=== PATIENT | female | born 1950 | race Caucasian/White ===

== ENCOUNTER → 2017-05-29 | Outpatient (CLI) | payer OTHER ==
[~2017-05-29] MED LIST: ASPI81TA28 PO; ATEN50TA8 PO; ATOR10TA88 PO; CHOLTAB3 PO; COEN1CAP7 PO; MULT-506 PO; OMEG10007 PO; OMEP10CA2 PO; VITA400C15 PO
--- NOTE | 2017-05-30 08:12 | MAMMOGRAPHY REPORT ---
BILATERAL DIGITAL SCREENING MAMMOGRAM TOMOSYNTHESIS WITH CAD: 05/29/2017 CLINICAL HISTORY: Asymptomatic. Personal history of breast cancer. TECHNIQUE: Breast tomosynthesis in addition to standard 2D mammography was performed. Current study was also evaluated with a Computer Aided Detection (CAD) system. COMPARISON: Comparison is made to exams dated: 05/24/2016 mammogram, 11/22/2015 mammogram, 03/31/2015 ma mmogram, 09/14/2014 mammogram, 03/11/2014 mammogram, and 03/25/2013 ultrasound biopsy - [facility]. BREAST COMPOSITION: The tissue of both breasts is heterogeneously dense, which may obscure small mas ses. FINDINGS: There is expected architectural distortion, density and skin irregularity in the upper out er posterior right breast, at the site of prior lumpectomy. There is mild diffuse skin thickening of the right breast, decreasing comparing to prior recent mammograms. There is a 5 mm nodular asymmetr y along the lateral aspect of the lumpectomy bed (best seen on cc tomosynthesis slice 36/70), for whi ch additional targeted ultrasound and possible additional mammographic views are recommended. There are diffuse benign coarse calcifications in the breasts. No other new suspicious mass, archite ctural distortion or cluster of microcalcifications is seen. IMPRESSION: ACR BI-RADS CATEGORY 0: INCOMPLETE EVALUATION: NEED ADDITIONAL IMAGING EVALUATION The 5 mm nodular asymmetry in the lateral, posterior right breast just lateral to the lumpectomy bed needs additional evaluation. The patient will be called to schedule an appointment. Approximately 10% of breast cancers are not detected with mammography. A negative mammographic report should not delay biopsy if a clinically suggestive mass is present. Rupali Nguyen M.D. ay/:05/29/2017 17:56:14 Dining Car Waiter/Waitress: Vivien Gutierrez, [facility] letter sent: Addl Imaging 0 BI-RADS Code: ACR BI-RADS Category 0: Incomplete Evaluation: Need Additional Imaging Evaluation
== END | disposition home or self-care (01) ==
LOC: C.MAMM 08:04
PROVIDERS: ATTEND Surgery
DX: Z12.31 Encounter for screening mammogram for malignant neoplasm of breast (principal); Z85.3 Personal history of malignant neoplasm of breast; N64.89 Other specified disorders of breast

== ENCOUNTER → 2017-06-05 | Outpatient (CLI) | payer OTHER ==
--- NOTE | 2017-06-05 14:33 | MAMMOGRAPHY REPORT ---
ULTRASOUND OF RIGHT BREAST: 06/05/2017 CLINICAL HISTORY: 67 year-old woman with a personal history of right breast cancer status post breast conserving treatment in 2012 call back from recent screening mammogram for a 5 mm nodular asymmetry lateral to the surgical site on the CC view. COMPARISON: Comparison is made to exams dated: 05/29/2017 mammogram, 05/24/2016 mammogram, 11/22/2015 m ammogram, 03/31/2015 mammogram, 09/14/2014 mammogram, and 03/11/2014 mammogram - [facility] nter. FINDINGS: Targeted ultrasound was performed along and just lateral to the skin surgical scar at the s ite of prior lumpectomy, in the upper outer quadrant of the right breast, approximate 10:00 axis. Th ere is heterogeneous hypoechoic thickening of the skin versus mass along the lateral aspect of the sc ar. There is another discrete nodular area with possible internal echogenic reflectors which may rep resent the calcification seen mammographically within a 5 mm nodular asymmetry. This nodular compone nt measures 3.5 x 3.2 x 5.4 mm. A thin oval masslike heterogeneous area deep to the dermis and in po ssibly involving the dermis within 8 mm of the nodular area measures 10.9 x 5.5 mm. These areas may represent fat necrosis although recurrent disease cannot be excluded and definitive characterization with an ultrasound-guided core needle biopsy is recommended. IMPRESSION: ACR BI-RADS CATEGORY 4: SUSPICIOUS - FOLLOW-UP RECOMMENDED There are 2 prominent heterogeneous solid nodular areas near the skin surgical scar and just lateral to it, in the approximate 10:00 right breast, at the site of prior lumpectomy. The smaller nodular a nisa is thought to correspond with the mammographic finding. Differential considerations include fat necrosis and recurrent disease. Definitive characterization with an ultrasound guided core needle bi opsy is recommended. These results and recommendations were discussed with the patient at the time of the exam. She tenta tively scheduled the biopsy prior to leaving our department. Rupali Nguyen M.D. ay/:06/05/2017 14:06:25 Freight Service Inspector: Dr. Rupali Nguyen, [facility] letter sent: Abnormal 4/5 BI-RADS Code: ACR BI-RADS Category 4: Suspicious
== END | disposition home or self-care (01) ==
LOC: C.MAMM 10:53
PROVIDERS: ATTEND Surgery
DX: Z12.31 Encounter for screening mammogram for malignant neoplasm of breast (principal); N64.89 Other specified disorders of breast

== ENCOUNTER → 2017-06-11 | Outpatient (CLI) | payer OTHER ==
--- NOTE | 2017-06-11 09:52 | Discharge Instructions ---
Discharge Instructions Procedure Procedure Date: Jun 11, 2017. Reason for visit: Right Mass. Discharge Discharge Date: Jun 11, 2017. Discharge Diagnosis: post right breast ultrasound guided core biopsy x 2 Medications Restart Stopped Medication(s): May restart Aspirin tonight or tomorrow Instructions Activity Recommendations: Additional Limitations (see below) Return to School/Work: no limitations Recommended Home Diet: No Limitations Provider Instructions: ACTIVITY RECOMMENDATIONS: * No lifting, pushing, pulling or exercising the affected side for three days. RETURN TO SCHOOL/WORK: * You may return to work/school after the procedure, but do not perform any strenuous activities for 24 to 48 hours. MEDICATIONS: * Tylenol (two 325 mg) every four to six hours if needed for mild pain (if not allergic to Tylenol). DIET: * Resume previous diet. SPECIAL CARE INSTRUCTIONS: * Keep biopsy site dry for 24 hours. May shower after 24 hours, but do not soak (bathe) incision. * May remove Tegaderm (plastic patch) tomorrow AFTER showering. * Leave the steri-strips on for one week. Allow the steri-strips to fall off by themselves. If not off after one week, you may remove them. You may place a Bandaid crosswise over the strips, if desired. * Apply ice 10 minutes on and 10 minutes off as needed. * Wear a bra at bedtime to sleep more comfortably for 2-3 days. * Your referring physician should have the results after approximately 5 to 7 business days. * Call for unusual bleeding, fever, drainage, etc or if you have any questions call [phone] during normal business hours or after hours call Dr Nguyen, . FOLLOW UP VISIT: Follow-up with Referring Physician as scheduled. Allergies Coded Allergies: No Known Allergies (Verified Allergy, Unknown, 03/13/05) Monica Brown Recommendations: Call your doctor if: * Temperature above 101 degrees * Pain not relieved by pain medicine ordered * There is increased drainage or redness from any incision * You have any unanswered questions or concerns. Your Doctors Instructions noted above were prepared by provider Rupali Nguyen. Patient Signature Section: Patient Instructions Signature Page Dusty Rajput Patient (or Guardian) Signature/Date: I have read and understand the instructions given to me by my caregivers. Caregiver/RN/Doctor Signature/Date: The above-named patient and/or guardian has received patient instructions on this date. + Original Patient Signature Page (only) stays with chart. Please make copy for patient.
--- NOTE | 2017-06-11 13:34 | MAMMOGRAPHY REPORT ---
ULTRASOUND GUIDED BIOPSY: 06/11/2017 CLINICAL HISTORY: Indeterminate hypoechoic masslike areas extending into the dermis and adjacent to s car in the 10:00 right breast, near the area of prior lumpectomy. Patient presents for ultrasound-gu ided core biopsy 2. Please refer to the report from right breast ultrasound guided core biopsy performed at the same time for full detail. IMPRESSION: ULTRASOUND GUIDED BIOPSY Please refer to the report from right breast ultrasound guided core biopsy performed at the same time for full detail. Rupali Nguyen M.D. ay/:06/11/2017 09:53:08 Attending Technologist: Muriel Johnson RT(R)(M), [facility] Tank Hoop Bender: Dr. Rupali Nguyen, [facility]
--- NOTE | 2017-06-11 13:34 | MAMMOGRAPHY REPORT ---
MULTIPLE ULTRASOUND GUIDED BIOPSIES RIGHT BREAST: 06/11/2017 CLINICAL HISTORY: Ill-defined heterogeneous hypoechoic lesions near the lumpectomy scar, and close to the skin in the 10:00 right breast. Patient presents for ultrasound-guided core biopsy 2. COMPARISON: Comparison is made to exams dated: 06/05/2017 ultrasound, 05/29/2017 mammogram, 05/24/2016 mammogram, 11/22/2015 mammogram, 03/31/2015 mammogram, and 09/14/2014 mammogram - [facility]. PATIENT CONSENT: The procedure, risks and benefits were discussed with the patient and informed conse nt was obtained both verbally and in writing. Specific risks to this procedure include: bleeding, in fection, puncture of adjacent structure, nontarget biopsy, sampling error, pain, metal allergy and me dication reaction. PROCEDURE DESCRIPTION: A time out was performed and the right breast was agreed as the site of biopsy . The skin was prepped and draped in the usual sterile fashion. First, the rounded hypoechoic area w ith possible associated calcification in the 10:00 right breast, just lateral to the skin surgical sc ar was identified and targeted for biopsy. Subcutaneous and intraparenchymal 1% buffered lidocaine, without epinephrine, was administered as local anesthesia. A skin incision was made. Through the inc ision, 6 samples were taken with a 14 gauge Achieve biopsy device. A ribbon shaped metallic marker wa s placed at the biopsy site. Hemostasis was achieved after manual compression. The patient tolerated the procedure well and there was no immediate complication. Then the heterogeneous vascular hypoechoic area closer to the skin surface in the 10:00 right breast was identified and targeted for biopsy. Additional 1% buffered lidocaine without epinephrine was adm inistered as local anesthesia. Using the same incision from the first biopsy site, 3 samples were ob tained with a 14-gauge achieve biopsy device. A wing-shaped metallic biopsy marker was placed at thi s site. All of the samples were sent expedited to the pathology department in appropriately labeled containers. Postprocedure right CC and ML 2-D and tomosynthesis images were obtained. 2 new biopsy marker clips are seen in the upper outer posterior right breast, at the site of recent biopsy. The ribbon-shaped clip aligns with the nodular mammographic asymmetry in question. The wing-shaped clip is seen corres ponding to an ill-defined asymmetry just below the dermis. No significant post biopsy hematoma is se en. IMPRESSION: ULTRASOUND GUIDED BIOPSY Status post ultrasound-guided core needle biopsy of 2 ill-defined hypoechoic heterogeneous solid mass es in the 10:00 right breast lateral to the surgical scar and near the dermis, with biopsy markers pl aced at each site. The patient will receive notification of the biopsy results from her referring physician. Rupali Nguyen M.D. ay/:06/11/2017 11:34:03 Attending Technologist: Muriel CAMERON(Suad)(M), [facility] Community Representative: Dr. Rupali Nguyen, [facility]
--- NOTE | 2017-06-11 13:35 | MAMMOGRAPHY REPORT ---
UNILATERAL RIGHT DIGITAL DIAGNOSTIC MAMMOGRAM TOMOSYNTHESIS: 06/11/2017 CLINICAL HISTORY: Status post ultrasound guided core biopsy 2 near the surgical scar in the 10:00 ri t breast. Please refer to the report from right breast ultrasound guided core biopsy performed at the same time for full detail. IMPRESSION: POST PROCEDURE IMAGING FOR MARKER PLACEMENT Please refer to the report from right breast ultrasound guided core biopsy performed at the same time for full detail. Approximately 10% of breast cancers are not detected with mammography. A negative mammographic report should not delay biopsy if a clinically suggestive mass is present. Rupali Nguyen M.D. ay/:06/11/2017 09:53:47 Python Architect: Muriel CAMERON(Suad)(M), [facility] BI-RADS Code: Post Procedure Imaging For Marker Placement
== END | disposition home or self-care (01) ==
LOC: C.MAMM 08:53
PROVIDERS: ATTEND Surgery
DX: N63.10 Unspecified lump in the right breast, unspecified quadrant (principal)

== ENCOUNTER → 2017-06-26 | Outpatient (CLI) | payer OTHER ==
[~2017-06-26] MED LIST changes: +ATOR10TA82 PO; -ATOR10TA88 PO
[2017-06-26 13:01] VITALS: BP 129/84; PULSE 56; TEMP 37.1; O2SAT 97
--- NOTE | 2017-06-26 14:24 | Radiation Oncology Follow-Up ---
Radiation Oncology Follow-Up Date of Visit Jun 26, 2017. 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 She has noted no masses or tenderness and no change in the axilla. She's had no swelling of her arm. She had a mammogram 05/29/2017. There was a 5 mm nodule asymmetry in the lateral posterior right breast just lateral to the lumpectomy bed. She had an ultrasound which showed 2 prominent heterogeneous solid nodular areas near the skin surgical scar and just lateral to it in approximately 10:00 right breast, at the site of the prior lumpectomy. Smaller nodular area is thought to correspond with a mammographic finding. This was reviewed by Dr. Mejia and biopsies were performed. This was carried out on 06/11/2017. This showed fibrous, fat necrosis and chronic inflammation. At 2 sites. Pathology specimen [id number]. She is doing well. She is very minimal tenderness left in the area of the biopsy site. Allergies Coded Allergies: No Known Allergies (Verified Allergy, Unknown, 03/13/05) Home Medications Scheduled Aspirin (Aspirin Ec), 81 MG PO DAILY Atenolol (Tenormin), 50 MG PO DAILY Atorvastatin (Lipitor), 10 MG PO DAILY Coenzyme Q10 (Ubidecarenone) (Coq10), 1 CAP PO DAILY Ergocalciferol (Vitamin D), 400 INTER.UNIT PO DAILY Fish Oil ([place]-3), 1 CAP PO DAILY Multivitamin (Multivitamin), 1 TAB PO DAILY Omeprazole (Prilosec), 10 MG PO PRN Tocopheryl Acet,Dl-Alpha (Vitamin E), 400 INTER.UNIT PO DAILY Review of Systems Gastrointestinal: Symptoms: WNL Oral: Symptoms: No Problems Respiratory: Symptoms: WNL Other Respiratory: Currently with head cold which she got the past couple days Urinary: Symptoms: WNL Skin: Symptoms: No Problems Breast: Right Upper Arm Measurement: 35.0 Right Mid Arm Measurement: 28.3 Right Wrist Measurement: 17.0 Left Upper Arm Measurement: 36.0 Left Mid Arm Measurement: 29.0 Left Wrist Measurement: 17.5 Arm Dominence: Right Physical Exam Vital Signs Date Time Temp Pulse Resp B/P (MAP) Pulse Ox O2 Delivery O2 Flow Rate FiO2 06/26/17 13:01 37.1 56 12 129/84 97 Fatigue: None General Appearance: no apparent distress Eyes: normal inspection, EOMI ENT: normal ENT inspection, hearing grossly normal Neck: no adenopathy, thyroid normal Respiratory/Chest: lungs clear, no respiratory distress, no accessory muscle use Breast: Breast examination reveals healed incision of the right lateral breast. There are fibrous changes with mild retraction. There are no distinct masses. There is slight tenderness. There is no erythema or edema. There is no axillary adenopathy. Using the Som[place] score cosmesis she has a fair outcome. The left breast showed no masses or tenderness and no axillary adenopathy. Cardiovascular: regular rate, rhythm, no gallop, no murmur Extremities: no pedal edema Neurologic/Psychiatric: no motor/sensory deficits, alert, normal mood/affect Skin: warm/dry Laboratory Studies [facility] SURGICAL PATHOLOGY REPORT Name Dusty SCHMITT Case: [id number] SURGICAL PATHOLOGY REPORT Page 3 of [address] [address] Marito Longo M.D. medical charge entry specialist PATHOLOGY REPORT SURGICAL PATHOLOGY REPORT Page 1 of 1 Name Dusty SCHMITT Age/Sex 67/F Location: C.MAMM MR# [id number] : 1950 Rm/Bed Physician: Adriel Mejia M.D. Case: [id number] Received 06/11/17 Specimen Date 06/11/17 CLINICAL HISTORY Hypoechoic masses near lumpectomy bed 10 oclock right breast. Rule out recurrent disease. GROSS DESCRIPTION A. US-GUIDED CORE BIOPSY SMALLER AREA WITH CALCIFICATIONS The specimen is received in a container labeled as right breast 10 oclock with patient name Ember Schmitt. The specimen consists of multiple cylindrical fragments of pale pink, yellow and dark red soft, rubbery tissue. The fragments range from 0.3 to 2.8 cm long and average 0.2 cm in diameter. The specimen is submitted entirely in a single cassette labeled as A for levels. B. LARGER AREA NEAR SKIN The specimen is received in a container labeled as right 10 oclock with patient name Ember Schmitt. The specimen consists of three pale pink, bright yellow and red cylindrical fragments of soft, rubbery tissue. The fragments range from 1.8 to 2.5 cm long and average 0.2 cm in diameter. The specimen is submitted entirely in a single cassette as B for levels. Specimens A and B are each fixed in formalin for 10 hours. /[facility] MICROSCOPIC DESCRIPTION Multiple levels and sections are examined. Both biopsies specimens appear somewhat similar and show areas of variably necrotic fibrotic and adipose tissue. Areas consistent with fat necrosis and associated histiocytes are present. In some of these areas are scattered somewhat infiltrating appearing cells. Immunohistochemistry is performed on both parts A and B. The cells of interest are negative with pankeratin and positive with CD163. The overall findings are consistent with fat necrosis, fibrosis and varying degrees of chronic inflammation. No carcinoma is identified. No calcifications are identified either specimen. Immunohistochemical stains at [facility] ([facility]) are performed for diagnostic reasons (i.e. detection of malignancy, tumor subtyping, infection identification), therapy selection (i.e. estrogen receptor) and genetic disorder evaluation (i.e. Diop syndrome). The quantity and specific types of immunohistochemistry stains are purposely chosen in the context of the clinical history, morphologic findings and best clinical practice. Immunohistochemical stains are performed at [facility] on a [employer] automated system with performance determined by the [facility]. Some stains may be performed by other laboratories ([facility] or [facility]) with development and performance characteristics determined by that laboratory. When necessary, on- line positive controls are reviewed at that particular laboratory. These tests have not been cleared or approved for specific use by the U.S. Food and Drug Administration. The FDA has determined that such approval is not necessary. The test is used for clinical purposes. It should not be regarded as investigational or for research. This laboratory is certified under CLIA 1988 as qualified to perform high complexity testing. Immunohistochemistry performed on decalcified specimens is done with antigen retrieval which has been internally validated in the [facility] laboratory. Immunocytochemistry may be performed on alcohol fixed smears, cytospins or Thin Prep slides. Immunocytochemistry on all of these types of slides has been internally validated in the [facility] laboratory. FINAL DIAGNOSIS A. BREAST, RIGHT, 10 OCLOCK, SMALLER AREA WITH CALCIFICATIONS, ULTRASOUND GUIDED CORE BIOPSY: 1. NEGATIVE FOR CARCINOMA. 2. FIBROSIS, FAT NECROSIS AND CHRONIC INFLAMMATION. 3. NO MICROCALCIFICATIONS IDENTIFIED. B. BREAST, RIGHT, 10 OCLOCK, LARGER AREA NEAR SKIN, CORE BIOPSY: 1. NEGATIVE FOR CARCINOMA. 2. FIBROSIS, FAT NECROSIS AND CHRONIC INFLAMMATION. 3. NO MICROCALCIFICATIONS IDENTIFIED. PM/bf COPIES TO Adriel Mejia M.D. [address] [place] [address] Drive [address] [place] [address] [facility] Center, ([facility]) , Stanislav Lang M.D. [address] [place] [address] Rupali Nguyen MD [address] [place] [id number] Signed: <signature on file> 06/12/17 Marito Longo M.D. Additional Studies Patient: Dusty SCHMITT [facility] Rec: [id number] Address1: [address] [place] [address] Address2: [facility] [address] Acct ID: [id number] Date: 1950 Sex: F Ref Phy: Mary Aburto M.D. Att Phy: Adriel Mejia M.D. Hetal Phy: Stanislav Lang M.D. Inter Phy: Rupali Nguyne MD [facility] Zip: [place] [address] SC: C.MAMM Report #: [id number] Finance Attorney: CECE Diagnosis: ASYMPTOMATIC, HX OF BREAST CA Service Date: 05/29/17 MNE: MAMM1 Ordering Dr: Adriel Mejia M.D. CC: Adriel Mejia M.D. CONF: DICTATED BY: Rupali Nguyen MD MAMMOGRAPHY REPORT BILATERAL DIGITAL SCREENING MAMMOGRAM TOMOSYNTHESIS WITH CAD: 05/29/2017 CLINICAL HISTORY: Asymptomatic. Personal history of breast cancer. TECHNIQUE: Breast tomosynthesis in addition to standard 2D mammography was performed. Current study was also evaluated with a Computer Aided Detection (CAD ) system. COMPARISON: Comparison is made to exams dated: 05/24/2016 mammogram, 11/22/2015 mammogram, 03/31/2015 mammogram, 09/14/2014 mammogram, 03/11/2014 mammogram, and ultrasound biopsy - [facility]. BREAST COMPOSITION: The tissue of both breasts is heterogeneously dense, which may obscure small masses. FINDINGS: There is expected architectural distortion, density and skin irregularity in the upper outer posterior right breast, at the site of prior lumpectomy. There is mild diffuse skin thickening of the right breast, decreasing comparing to prior recent mammograms. There is a 5 mm nodular asymmetry along the lateral aspect of the lumpectomy bed (best seen on cc tomosynthesis slice 36/70), for which additional targeted ultrasound and possible additional mammographic views are recommended. There are diffuse benign coarse calcifications in the breasts. No other new suspicious mass, architectural distortion or cluster of microcalcifications is seen. IMPRESSION: ACR BI-RADS CATEGORY 0: INCOMPLETE EVALUATION: NEED ADDITIONAL IMAGING EVALUATION The 5 mm nodular asymmetry in the lateral, posterior right breast just lateral to the lumpectomy bed needs additional evaluation. The patient will be called to schedule an appointment. Approximately 10% of breast cancers are not detected with mammography. A negative mammographic report should not delay biopsy if a clinically suggestive mass is present. Rupali Nguyen M.D. ay/:05/29/2017 17:56:14 Him Tech: Vivien Gutierrez, [facility] letter sent: Addl Imaging 0 BI-RADS Code: ACR BI-RADS Category 0: Incomplete Evaluation: Need Additional Imaging Evaluation Dictated by: Rupali Nguyen MD Signed by: Rupali Nguyen MD Patient: Dusty SCHMITT [facility] Rec: [id number] Address1: [address] [place] [address] Address2: [place] [address] Acct ID: [id number] Date: 1950 Sex: F Ref Phy: Adriel Mejia M.D. Att Phy: Adriel Mejia M.D. Hetal Phy: Stanislav Lang M.D. Inter Phy: Rupali Nguyen MD [facility] Zip: [place] [address] SC: ItzelMAMM Report #: [id number] Finance Attorney: HOLLY Diagnosis: RIGHT NODULAR ASYMMETRY Service Date: 06/05/17 MNE: MAMM1 Ordering Dr: Adriel Mejia M.D. CC: Adriel Mejia M.D. CONF: DICTATED BY: Rupali Nguyen MD MAMMOGRAPHY REPORT ULTRASOUND OF RIGHT BREAST: 06/05/2017 CLINICAL HISTORY: 67 year-old woman with a personal history of right breast cancer status post breast conserving treatment in 2012 call back from recent screening mammogram for a 5 mm nodular asymmetry lateral to the surgical site on the CC view. COMPARISON: Comparison is made to exams dated: 05/29/2017 mammogram, 05/24/2016 mammogram, 11/22/2015 mammogram, 03/31/2015 mammogram, 09/14/2014 mammogram, and mammogram - [facility]. FINDINGS: Targeted ultrasound was performed along and just lateral to the skin surgical scar at the site of prior lumpectomy, in the upper outer quadrant of the right breast, approximate 10:00 axis. There is heterogeneous hypoechoic thickening of the skin versus mass along the lateral aspect of the scar. There is another discrete nodular area with possible internal echogenic reflectors which may represent the calcification seen mammographically within a 5 mm nodular asymmetry. This nodular component measures 3.5 x 3.2 x 5.4 mm. A thin oval masslike heterogeneous area deep to the dermis and in possibly involving the dermis within 8 mm of the nodular area measures 10.9 x 5.5 mm. These areas may represent fat necrosis although recurrent disease cannot be excluded and definitive characterization with an ultrasound-guided core needle biopsy is recommended. IMPRESSION: ACR BI-RADS CATEGORY 4: SUSPICIOUS - FOLLOW-UP RECOMMENDED There are 2 prominent heterogeneous solid nodular areas near the skin surgical scar and just lateral to it, in the approximate 10:00 right breast, at the site of prior lumpectomy. The smaller nodular area is thought to correspond with the mammographic finding. Differential considerations include fat necrosis and recurrent disease. Definitive characterization with an ultrasound guided core needle biopsy is recommended. These results and recommendations were discussed with the patient at the time of the exam. She tentatively scheduled the biopsy prior to leaving our department. Rupali Nguyen M.D. ay/:06/05/2017 14:06:25 Him Tech: Dr. Rupali Nguyen, [facility] letter sent: Abnormal 4/5 BI-RADS Code: ACR BI-RADS Category 4: Suspicious Dictated by: Rupali Nguyen MD Signed by: Rupali Nguyen MD Patient: Dusty SCHMITT [facility] Rec: [id number] Address1: [address] [place] [address] Address2: [place] [address] Acct ID: [id number] Date: 1950 Sex: F Ref Phy: Adrile Mejia M.D. Att Phy: Adriel Mejia M.D. Hetal Phy: Stanislav Lang M.D. Inter Phy: Rupali Nguyen MD [facility] Zip: [place] [address] SC: Itzel[facility]AMM Report #: [id number] Finance Attorney: NATALIIA Diagnosis: RIGHT MASS Service Date: 06/11/17 MNE: MAMM1 Ordering Dr: Adriel Mejia M.D. CC: Adriel Mejia M.D. CONF: DICTATED BY: Rupali Nguyen MD MAMMOGRAPHY REPORT UNILATERAL RIGHT DIGITAL DIAGNOSTIC MAMMOGRAM TOMOSYNTHESIS: 06/11/2017 CLINICAL HISTORY: Status post ultrasound guided core biopsy 2 near the surgical scar in the 10:00 right breast. Please refer to the report from right breast ultrasound guided core biopsy performed at the same time for full detail. IMPRESSION: POST PROCEDURE IMAGING FOR MARKER PLACEMENT Please refer to the report from right breast ultrasound guided core biopsy performed at the same time for full detail. Approximately 10% of breast cancers are not detected with mammography. A negative mammographic report should not delay biopsy if a clinically suggestive mass is present. Rupali Nguyen M.D. ay/:06/11/2017 09:53:47 Him Tech: Muriel PATTEN)(Dusty), [facility] BI-RADS Code: Post Procedure Imaging For Marker Placement Dictated by: Rupali Nguyen MD Signed by: Rupali Nguyen MD Assessment & Plan Plan: Continue with scheduled mammography. Her next mammogram will now be in one year. The path report was reviewed. The changes were from fat necrosis. We discussed gentle massage to the area of fibrous tissue. Continue follow-up with her primary care physician and breast surgeon. We asked her to return to our office in 1 year. She may call if she has any questions or concerns in the interim. Total Time In Follow-Up I spent 20 minutes speaking to the patient and performing examination. I spent 15 minutes reviewing information in completing this note. Copy To Adriel Mejia M.D.; Stanislav Lang M.D. Problem Qualifiers (1) Carcinoma of upper-outer quadrant of right female breast: Estrogen receptor status: negative Qualified Codes: C50.411 - Malignant neoplasm of upper-outer quadrant of right female breast; Z17.1 - Estrogen receptor negative status [ER-]
== END | disposition home or self-care (01) ==
LOC: C.ONC 12:52
PROVIDERS: ATTEND Physician Assistant Medical
DX: Z08 Encounter for follow-up examination after completed treatment for malignant neoplasm (principal); Z85.3 Personal history of malignant neoplasm of breast; Z92.3 Personal history of irradiation